=== PATIENT | female | born 1985 | race Caucasian/White ===

== ENCOUNTER 2022-08-17 12:41 | Inpatient (IN) ==
[2022-08-17] MEDS ORDERED: LIDOCAINE 1% LOCAL 20 ML VIAL INFIL PRN (13:02)
[2022-08-17] MEDS ORDERED: OXYTOCIN 30 UNITS/500 ML BAG IV PRN ×2 (13:02→15:52)
--- NOTE | 2022-08-17 13:15 | History & Physical Report ---
Date of Service August 17, 2022 Assessment & Plan (1) Rupture of membranes with clear amniotic fluid: Plan: 36 y/o at 40w4d had ROM during membrane stripping in office presents to L&D for induction of labor. FHT cat I, baseline 151, moderate variability, no de celerations H&H 12.2 35.2. Covid neg. Patient GBS+ give penicillin during labor. Exam unchanged from in office. Start pitocin at 2. Increase by 2 every hour. Epidural when/if desired. Rh neg, had rhogam - will assess . No contractions, some cramping. Overall doing well. History of Present Illness Chief Complaint: ROM Primary Care Provider: NO PCP 36 y/o at 40w4d had ROM during membrane stripping in office presents to L&D for labor. GBS + (penicillin started), RI, Rh neg (Rhogam 05/26/22). Having cramping. No organized contractions. PNC c/b 1. Rh neg had Rhogam eval 2. GBS+ (penicillin during labor) PNL rh neg, ri, gbs neg OBH: 3 spontaneous abortions, 1 ectopic GY[facility]: nl pap. no stds Allergies Allergy/AdvReac Type Severity Reaction Status Date / Time No Known Allergies Allergy Verified 08/17/22 09:24 Home Medications Medication Instructions Recorded Confirmed Type multivitamin with iron 1 tab PO DAILY 01/14/22 08/17/22 History Patient History Medical History (Updated 08/17/22 @ 13:23 by Tianna Christy MD) History of chicken pox Uterine polyp Surgical History (Updated 08/17/22 @ 12:52 by Caroline Garcia RN) History of hysteroscopy [place] teeth removed Family History Brother Myocardial infarction Mother Rheumatoid arthritis Denies family history of Ovarian cancer Breast cancer Colorectal cancer Social History Smoking Status: Never smoker Hx Alcohol Use: No Hx Substance Use: No Preferred Language: Kiswahili Communication Ability: Effective Imaging Specialist Required: No Beliefs That Will Affect Care: None marital status: marital status details: Jony Cortésehn(37) [phone] Current Living Situation: Spouse Current Living Situation Comment: lives with spouse, outside cats current occupational status: employed 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 Other Information That Helps Us Care for You: No Feels Safe at Home: Yes Safety Concerns: Feels Safe At This Time Assistive Devices: None Physical Exam Constitutional: WD/WN, vitals as above Eyes: PERRL, conjunctivae normal, anicteric sclerae Neck: trachea midline Respiratory: no increased work of breathing Cardiovascular: clinically well perfused Genitourinary: Manual OB Exam: + cervical dilation (1), + cervical effacement 50% and + station -2 OB Exam Monitor Tracing: + category I (baseline 151, moderate variability, no decels) Results & Data ([facility]) Vital Signs (Past 12 Hours) Vital Signs Pulse BP 08/17/22 13:11 94 H 123/81 08/17/22 13:01 104 H 120/81 08/17/22 12:50 86 125/84 Laboratory Results 08/17/22 08/17/22 Range/Units 13:16 13:15 WBC 8.70 (4.8-10.8) K/ul RBC 4.02 (3.93-5.22) M/uL Hgb 12.2 (12.0-16.0) g/dl Hct 35.2 (34.1-44.9) % MCV 87.6 (80.0-100.0) fL MCH 30.3 (25.0-34.0) pg MCHC 34.7 (32.0-36.0) g/dL RDW Std Deviation 43.0 (36.4-46.3) fL RDW Coeff of Juan 13.6 (11.5-14.5) % Plt Count 173 (130-400) K/uL MPV 10.4 (9.4-12.3) fL SARS-CoV-2, RNA, NAAT Pending Supervising Physician Co-Signing Physician Notes Resident Physician Supervision Note: I interviewed and examined the patient. Discussed with Dr. Christy and agree with findings and plan as documented in the note. Any exceptions or clarifications are listed here: 36 yo at 41 wga presented after ROM in office during membrane stripping. Some irreg cramping, no VB. VSS, fetus cat 1, irreg ctx. SVE /-2, unchanged from this AM. Discussed pitocin given lack of change, GBS+ and pt is amenable. Will start pit. Pcn started for GBS+, epidural prn but pt plans w/o Documented By: Seema Carlos MD Resident Activity Tracking Resident Involvement: Resident Care Provided Care Provided: Adult Hospital Medicine and OB Delivery
[2022-08-17] MEDS ORDERED: PENICILLIN G POTASSIUM 6 MU in DEXTROSE 5% 250 ML IV STA (13:16)
[2022-08-17] MEDS: LACTATED RINGER'S 1,000 ML IV PRN ×2 (13:20→22:15)
[2022-08-17 13:29] LABS: Hematocrit (blood only) 35.2 % (34.1-44.9); Hemoglobin 12.2 g/dl (12.0-16.0); Mean Corpuscular Hemoglobin 30.3 pg (25.0-34.0); Mean Corpuscular Hgb Conc 34.7 g/dL (32.0-36.0); Mean Corpuscular Volume 87.6 fL (80.0-100.0); Mean Platelet Volume 10.4 fL (9.4-12.3); Platelet Count 173 K/uL (130-400); RDW Coefficient of Variation 13.6 % (11.5-14.5); Red Blood Count 4.02 M/uL (3.93-5.22)
[2022-08-17] MEDS ORDERED: OXYTOCIN 30 UNITS/500 ML BAG IV SCH (13:30)
[2022-08-17] MEDS ORDERED: OXYTOCIN 30 UNITS/500ML NSS IV ONE (15:44)
[2022-08-17] MEDS: PENICILLIN G POTASSIUM 3 MU in DEXTROSE 5% 100 ML IV PRN ×2 (17:58→22:23)
[2022-08-17] MEDS ORDERED: ONDANSETRON INJ 2 MG/ML 2 ML VIAL IV PRN ×2 (19:16→22:20)
--- NOTE | 2022-08-17 20:13 | Labor Progress Brief Note ---
Date of Service August 17, 2022 Subjective Some nausea, pain tolerable Assessment & Plan (1) Rupture of membranes with clear amniotic fluid: Plan: 36 yo at 41 wga admitted w/ PROM VSS Fetus cat 1 Labor - continue pit induction GBS+, pcn ordered epidural prn, pt desires to try to go naturally Admission and Anticipated Discharge Date Admission Date: August 17, 2022 Physical Exam Genitourinary: Manual OB Exam: + cervical dilation 2 cm, + cervical effacement 50% and + station -2 OB Exam Monitor Tracing: + external FHT monitor used, + external uterine monitor used (q3) and + category I (145-150/mod/+accel/-decel) Results & Data ([facility]) Vital Signs (Past 12 Hours) Vital Signs Temp Pulse Resp BP 08/17/22 12:56 98.4 F 20 08/17/22 20:07 98 H 18 137/76 08/17/22 19:00 18 08/17/22 19:00 98.6 F 18 08/17/22 19:15 107 H 121/76 08/17/22 18:29 88 124/74 08/17/22 17:26 98.2 F 88 20 127/77 08/17/22 16:13 89 121/84 08/17/22 16:05 89 125/78 08/17/22 15:11 98.4 F 82 20 123/80 08/17/22 13:11 94 H 123/81 08/17/22 13:01 104 H 120/81 08/17/22 12:50 86 125/84 Coding Level of Care Code None Diagnoses Rupture of membranes with clear amniotic fluid
[2022-08-17] MEDS ORDERED: SODIUM CHLORIDE 0.9% INJ 10 ML VIAL ONE (21:33)
[2022-08-17] MEDS ORDERED: LIDOCAINE 2%/EPINEPHRINE 1:200,000 20 ML SDV ONE (21:33)
[2022-08-17] MEDS ORDERED: ePHEDrine sulfate 50 MG/ML AMP ONE (21:33)
[2022-08-17] MEDS ORDERED: fentaNYL citrate 100 MCG/2 ML VIAL ONE (21:33)
[2022-08-17] MEDS ORDERED: BUPIVACAINE 0.25% 30 ML VIAL ONE (21:33)
[2022-08-17] MEDS ORDERED: fentaNYL 2MCG/ML ROPIVACAINE 1.25MG/ML 100 ML BAG EPI ONE (21:34)
--- NOTE | 2022-08-17 22:18 | Anesthesiology Consultation ---
Date of Service August 17, 2022 Assessment & Plan Chart Review Chart Review: Acceptable Risk for Labor Epidural Consults Requested none History Height/Weight Height: 5 ft 4 in Weight: 97.976 kg Allergies Allergy/AdvReac Type Severity Reaction Status Date / Time No Known Allergies Allergy Verified 08/17/22 09:24 Medications Home Medications Medication Instructions Recorded Confirmed Last Taken multivitamin with iron 1 tab PO DAILY 01/14/22 08/17/22 08/10/22 10:00 Active Medications Generic Name Dose Route Start Last Admin Trade Name Freq PRN Reason Stop Dose Admin Lactated Ringer's 1,000 mls @ 125 mls/hr 08/17/22 13:02 08/17/22 22:15 Lr IV 08/19/22 13:01 125 mls/hr .Q8H PRN Administration L&D Protocol Protocol Penicillin G Potassium 3 mu/ 106 mls @ 100 mls/hr 08/17/22 16:03 08/17/22 19:08 Dextrose IV 08/27/22 16:02 Infused Q4H PRN Infusion GBS(+) Until Delivery Oxytocin 30 units in 500 mls @ 12 mls/hr 08/17/22 15:52 08/17/22 21:00 Pitocin IV 08/19/22 15:51 0.72 units/hr .Q24H PRN 12 mls/hr Labor Induction/Augmentation Titration Protocol 0.72 UNITS/HR Ondansetron HCl 4 mg 08/17/22 19:16 08/17/22 19:32 Ondansetron Inj 2 Mg/Ml 2 Ml Vial IV 09/16/22 19:15 4 mg Q6H PRN Administration Nausea And Vomiting Past Medical History Medical History (Updated 08/17/22 @ 13:23 by Tianna Christy MD) History of chicken pox Uterine polyp Past Family History Family History Brother Myocardial infarction Mother Rheumatoid arthritis Denies family history of Ovarian cancer Breast cancer Colorectal cancer Past Surgical History Surgical History (Updated 08/17/22 @ 12:52 by Caroline Garcia RN) History of hysteroscopy [place] teeth removed Social History Smoking Status: Never smoker Hx Alcohol Use: No Hx Substance Use: No Physical Exam Vital Signs Last Vital Signs Temp 37.3 C 08/17/22 21:00 Pulse 106 H 08/17/22 22:17 Resp 18 08/17/22 21:00 BP 118/71 08/17/22 22:17 Pulse Ox 98 08/17/22 22:15 Testing Laboratory Results 08/17/22 13:16 Blood Type A Negative 08/17/22 13:16 Antibody Screen POSITIVE A 08/17/22 13:16
[2022-08-17] MEDS ORDERED: ePHEDrine sulfate 50 MG/ML AMP IV PRN (22:20)
[2022-08-17] MEDS ORDERED: fentaNYL 2MCG/ML ROPIVACAINE 1.25MG/ML 100 ML BAG EPI PRN (22:20)
[2022-08-17] MEDS ORDERED: NALOXONE HCL 1 MG in SODIUM CHLORIDE 0.9% 1000ML 1,000 ML IV PRN (22:20)
[2022-08-17] MEDS ORDERED: NALOXONE HCL 0.4 MG/1 ML VIAL/CARP IV PRN (22:20)
[2022-08-17] MEDS ORDERED: diphenhydrAMINE 50 MG/ML VIAL IV PRN (22:20)
[2022-08-17] MEDS ORDERED: NALBUPHINE HCL INJ 10 MG/ML AMP IV PRN (22:20)
[2022-08-18] MEDS ORDERED: NURSING L&D Epidural Breakthrough Pain Update ONE (00:35)
[2022-08-18] MEDS ORDERED: fentaNYL citrate 100 MCG/2 ML VIAL ONE (01:42)
--- NOTE | 2022-08-18 01:55 | Communication Note ---
Date of Service: August 18, 2022 Called by staff for pt c/o pain. BP mildly elevated approx 140/90. Bolused epidural with 2% lidocaine 5cc plus fentanyl 100mcg.
[2022-08-18] MEDS: PENICILLIN G POTASSIUM 3 MU in DEXTROSE 5% 100 ML IV PRN (02:14)
[2022-08-18 05:30] LABS: Base Excess Cord Venous Blood -8.2 mEq/L (-7.7-1.9); Cord Venous Blood HCO3 19 mmol/L (18.4-26.8); Cord Venous Blood PCO2 46 mmHg (30.4-57.2); Cord Venous Blood PO2 35 mmHg (14.1-43.3); Cord Venous Blood pH 7.23 (7.20-7.44); O2 Saturation Cord Venous Bld 69.7 % (<68)
[2022-08-18] MEDS ORDERED: DIPHTHERIA/TETANUS/PERTUSSIS 0.5 ML SYR/VIAL IM ONE (05:39)
[2022-08-18] MEDS ORDERED: OXYTOCIN 30 UNITS/500 ML BAG IV PRN (05:39)
[2022-08-18] MEDS ORDERED: IBUPROFEN 600 MG TAB PO PRN (05:39)
[2022-08-18] MEDS ORDERED: ACETAMINOPHEN 325 MG TAB PO PRN (05:39)
[2022-08-18] MEDS ORDERED: BENZOCAINE 20% AER SPR 82.5 GM CAN EXT PRN (05:39)
[2022-08-18] MEDS ORDERED: bisacodyL 10 MG SUPP PR PRN (05:39)
[2022-08-18] MEDS ORDERED: HYDROCORTISONE ACETATE 25 MG SUPP PR PRN (05:39)
--- NOTE | 2022-08-18 05:43 | Delivery Summary ---
Vaginal Delivery Summary Date of Service August 18, 2022 Vaginal Delivery Summary and 2nd Degree LAC PREOPERATIVE DIAGNOSIS: 1. Single intrauterine at 41 1/7 wga 2. PROM 3. GBS+ POSTOPERATIVE DIAGNOSIS: 1. Single intrauterine at 41 1/7 wga 2. PROM 3. GBS+ 4. Delivered PROCEDURE: 1. Normal spontaneous vaginal delivery. SURGEON: Seema Carlos MD ANESTHESIA: Epidural. ESTIMATED BLOOD LOSS: 400 mL FLUIDS: Continuous LR. URINE OUTPUT: None. COMPLICATIONS: None. CONDITION: Stable. INDICATIONS: 36 yo at 41 1/7 wga presented one day ago after ROM during office visit. She was started on penicillin for GBS+ prophylaxis. Pitocin was started for induction. She received an epidural for pain control. She progressed to complete and desired to push. FINDINGS: A viable female , weight pending with Apgars of 6 and 8 at 1 and 5 minutes respectively. SPECIMEN: Cord blood, cord segment OPERATIVE REPORT: The patient progressed to 10 cm, 100% effaced and +2 station, pushed over intact perineum with anesthesia to deliver a viable female infant, weight and Apgars as above. Head of delivered in MARION position. Nuchal cord x 2 was noted and delivered through as could not reduce easily. Body and shoulders were delivered without difficulty. was delivered to maternal abdomen and nursing staff. Delayed cord clamping was initiated but then deferred due to not being vigorous. Cord was clamped and cut. Cord segment and blood were obtained. Placenta delivered spontaneously intact with 3-vessel cord. IV oxytocin and fundal massage were given for excellent hemostasis. Vagina, cervix, perineum, and placenta were inspected. A second degree laceration was noted and repaired using 3-0 vicryl in the usual fashion. There was excellent hemostasis. Sponge and needle counts correct x2. No sponges were left behind. Mother and stable in immediate period. [facility] Vaginal Delivery Charge Vaginal Delivery Codes: 40879 global code for the antepartum, delivery, and post- Delivery Type Details: and 2nd Degree LAC
--- NOTE | 2022-08-18 06:29 | Anesthesia Procedure Note ---
Date of Service August 18, 2022 Anesthesia Post Epidural Note Vital Signs Vital Signs: Temp Pulse Resp BP Pulse Ox 36.9 C 115 H 18 141/78 H 97 08/18/22 05:30 08/18/22 06:13 08/18/22 06:15 08/18/22 06:13 08/18/22 04:50 Pain Intensity Bilateral Abdomen: Pain Intensity: 9 Notes Mental Status: alert / awake / arousable Nausea / Vomiting: adequately controlled Pain: adequately controlled Airway Patency, RR, SpO2: stable & adequate BP & HR: stable & adequate Hydration State: stable & adequate Neuraxial Anesthesia: was administered and sensory block is resolving Anesthetic Complications: no major complications apparent and Pt Satisfied with anesthetic care Epidural: Removed without complications and With tip intact
[2022-08-18] MEDS: DOCUSATE SODIUM 100 MG CAP PO SCH ×2 (09:02→20:45)
[2022-08-18] MEDS: PRENATAL VITAMIN 1 TAB PO SCH (09:02)
[2022-08-18] MEDS: FERROUS SULFATE 325 MG TAB PO SCH (09:02)
--- NOTE | 2022-08-19 06:27 | Obstetrical Progress Note ---
Date of Service <Tianna Christy MD - Last Filed: 08/19/22 06:27> August 19, 2022 Assessment & Plan <Tianna Christy MD - Last Filed: 08/19/22 06:27> (1) Rupture of membranes with clear amniotic fluid: 36 y/o at 40w4d had ROM during membrane stripping in office presents to L&D for induction of labor now PPD. Overall doing well. Pain is tolerable. Encourage ambulation. Tolerating PO. Satisfactory post- progress. Rh neg, had rhogam - will assess . <Gilda Laboy MD - Last Filed: 08/19/22 07:22> (1) Rupture of membranes with clear amniotic fluid: Subjective <Tianna Christy MD - Last Filed: 08/19/22 06:27> Ambulation: ambulating normally Voiding: no voiding problems Passing Gas:: Yes Diet Tolerance:: regular diet Lochia:: Small Physical Exam <Tianna Christy MD - Last Filed: 08/19/22 06:27> Constitutional WD/WN, vitals as above Eyes PERRL, conjunctivae normal, anicteric sclerae Respiratory normal respiratory effort, lungs clear to auscultation Cardiovascular RRR, no murmur, no edema Extremities: no calf tenderness Genitourinary OB Exam Abdomen: + fundal height (@ the level ) Fundus: + firm Results & Data ([facility]) <Tianna Christy MD - Last Filed: 08/19/22 06:27> Vital Signs (Past 12 Hours) Vital Signs Temp Pulse Resp BP Pulse Ox O2 Del Method 08/19/22 00:55 36.7 C 90 16 94/59 L 96 Room Air 08/18/22 20:30 Room Air 08/18/22 20:30 36.7 C 74 18 105/67 97 Room Air <Gilda Laboy MD - Last Filed: 08/19/22 07:22> Co-Signing Physician Notes Resident Physician Supervision Note: I interviewed and examined the patient. Discussed with Dr. Christy and agree with findings and plan as documented in the note. Any exceptions or clarifications are listed here: [ ] Documented By: Gilda Laboy MD, FACOG Resident Activity Tracking <Tianna Christy MD - Last Filed: 08/19/22 06:27> Resident Involvement: Resident Care Provided Care Provided: Adult Hospital Medicine and OB Delivery
[2022-08-19] MEDS: FERROUS SULFATE 325 MG TAB PO SCH (08:46)
[2022-08-19] MEDS: DOCUSATE SODIUM 100 MG CAP PO SCH (08:46)
[2022-08-19] MEDS: PRENATAL VITAMIN 1 TAB PO SCH (08:46)
[2022-08-19] MEDS ORDERED: bisacodyL 5 MG TABEC PO SCH (20:00)
== END 2022-08-19 19:50 | disposition home or self-care (01) | DRG 807 ==
LOC: LAB 12:41 → 4S1 12:46 → 4E2 08-18 08:26